=== PATIENT | male | born 2000 | race Caucasian/White ===

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

== ENCOUNTER 2021-03-24 21:48 | Emergency (ER) | payer MEDICAID, SELFPAY ==
[2021-03-24 21:48] VITALS: BP 134/93; PULSE 95; RESP 16; TEMP 35.5; O2SAT 99; BMI 25.5
--- NOTE | 2021-03-24 22:07 | CT_ITS ---
HISTORY: headaches, dizziness, intermittent syncope -- family H/O aneurysms EXAMINATION: CTA Head WO/W Contrast Injection TECHNIQUE: Multiple axial images were obtained of the head with and without intravenous contrast. CT angiogram protocol utilized with 2-D and 3-D reconstructions. A radiation dose optimization technique was used for this scan. IV Contrast dosage and agent: None. COMPARISON: None FINDINGS: BRAIN PARENCHYMA: No intra- or extra-axial hemorrhage. No evidence of acute infarct. No intracranial mass or mass effect. There is preservation of the palomo/white matter interface. Posterior fossa structures are unremarkable. CSF SPACES: Appropriate for age. No hydrocephalus. Basal cisterns are patent. CALVARIUM, SKULL BASE, PARANASAL SINUSES AND MASTOID AIR CELLS: Intact calvarium. No acute disease within imaged paranasal sinuses. Mastoid air cellls are well pneumatized. ORBITS: Unremarkable as visualized. headaches -- family H/O aneurysms --Anterior circulation: ICAs: No significant stenosis at the intracranial/visualized segments. ACAs: No significant stenosis at the visualized segments. ACOM: Present. MCAs: No significant stenosis at the visualized segments. --Posterior circulation: PCOMs: Patent bilaterally. clinical rehabilitation specialist: No significant stenosis at the visualized segments. BASILAR ARTERY: No significant stenosis. VERTEBRAL ARTERIES: No significant stenosis at the intradural/visualized segments. No evidence of intracranial aneurysm or vascular malformation. CT/CTA Head W/WO Contrast IMPRESSION: Negative CTA head with and without contrast. Individualized dose optimization techniques were used for this CT. at 2311 Reported and signed by: Abdiaziz Sen MD Electronically Signed: Abdiaziz Sen MD at 23:10 EST Tel , Service support ,
--- NOTE | 2021-03-24 22:09 | EKG12_ITS ---
Test Reason : DIZZINESS Blood Pressure : / mmHG Vent. Rate : 073 BPM Atrial Rate : 073 BPM P-R Int : 136 ms QRS Dur : 090 ms QT Int : 382 ms P-R-T Axes : 047 043 018 degrees QTc Int : 420 ms Normal sinus rhythm Normal ECG Confirmed by JAKE ABREU, KIMBERLY ([id number]), associate editor JORDY SHERIDAN ([id number]) on 03/26/2021 1:24:33 PM Referred By: RYAN Confirmed By:KIMBERLY JOSEPH MD
--- NOTE | 2021-03-24 22:09 | EDS_ITS ---
HPI History of Present Illness Chief Complaint: Dizziness Informant: patient and parent Onset/Context/Timing Onset: Weeks Context: Gradual Onset Current Severity: Moderate Maximum Severity: Moderate Narrative Narrative: Patient presents with episodes of dizziness and migraine with intermittent syncope. He states is been having episodes of dizziness and near syncope/syncope since mid February. He was seen by his PCP and is scheduled to undergo an MRI of his brain. Over the past 1 month he is also had migraines associated with this. He states if he takes Excedrin early enough that will seem to destiny the headache. He states he is currently getting the dizzy migraine episodes daily. He will have a near syncopal episode about twice a week. He denies having palpitations. There is a family history of aneurysms. [facility] Medical History Anemia Anxiety History of ADHD Ingrowing toenail of left foot Non-smoker Wears glasses Home Medications NK 11/30/20 [History Last Taken Unknown] Allergy/AdvReac Type Severity Reaction Status Date / Time amoxicillin [From Augmentin] Allergy Hives Verified 03/24/21 22:21 clavulanic acid Allergy Hives Verified 03/24/21 22:21 [From Augmentin] clindamycin AdvReac Vomiting Verified 03/24/21 22:21 Surgical History Hx of myringotomy Social History Smoking Status: Current some day smoker tobacco type: cigarettes ROS ROS ED Constitutional Constitutional ED: Denies chills or fever(s) Eyes Eyes: Reports blurry vision ENT ENT ED: Denies sore throat Cardiovascular Cardiovascular: Denies chest pain, palpitations or racing heartbeat Respiratory/Chest Respiratory/Chest: Denies cough or dyspnea Gastrointestinal Gastrointestinal: Denies abdominal pain, diarrhea, nausea or vomiting Musculoskeletal Musculoskeletal: Denies back pain Integumentary Denies rash Neurologic Neurologic: Reports headache(s); Denies weakness Psychiatric Psychiatric: Denies anxiety or depression Allergic/Immunologic Allergic/Immunologic ED: Denies urticaria EXAM Physical Exam Const Vital Signs: 03/24/21 21:48 Temperature 96 F L Temperature Source Temporal Pulse Rate 95 Respiratory Rate 16 Blood Pressure 134/93 H Blood Pressure Mean 106 Pulse Ox 99 Oxygen Delivery Method Room Air Positive well nourished and well developed General Appearance ED: well developed Eyes PERRL and EOMs intact bilaterally Neck supple Chest Wall inspection of chest normal and palpation of chest normal Resp normal respiratory effort and clear to auscultation bilaterally Cardio regular rate and regular rhythm GI normal to inspection, nondistended, normoactive bowel sounds and non-tender Palpation: soft Extremity normal to inspection Neuro oriented x3 and no sensory deficits noted Sensorium / Orientation: alert Motor Exam: strength 5/5 throughout Psych mental status grossly normal Skin no rashes or lesions noted MDM MDM MDM Narrative Medical decision making narrative: Patient placed on property assessment monitor and EKG obtained. Lab work and CTA head ordered. Patient was given Toradol, Reglan, Benadryl, IV fluids Lab Data Attestation: I reviewed the patient's lab results. Labs: Laboratory Results - last 24 hr 03/24/21 03/24/21 22:38 22:38 WBC 10.0 RBC 5.66 Hgb 16.8 H Hct 48.4 MCV 85.5 MCH 29.7 MCHC 34.7 RDW Std Deviation 37.6 RDW Coeff of [place] 12.1 Plt Count 249 MPV 11.3 Immature Gran % (Auto) 0.100 Neut % (Auto) 58.6 Lymph % (Auto) 29.6 [place] % (Auto) 6.1 Eos % (Auto) 5.3 H Baso % (Auto) 0.3 Absolute Neuts (auto) 5.9 Absolute Lymphs (auto) 2.96 Nucleated RBC % 0 Sodium 140 Potassium 3.6 Chloride 109 H Carbon Dioxide 27.0 Anion Gap 4 L BUN 11 Creatinine 0.94 Estim Creat Clear Calc 118.18 Est GFR (MDRD) Af Amer 132 Est GFR (MDRD) Non-Af 109 BUN/Creatinine Ratio 11.7 Glucose 113 H Calcium 8.8 Radiography Diagnostic Testing: Clinical Impression(s) from Imaging Studies Head CTA 03/24/21 22:07 IMPRESSION: Negative CTA head with and without contrast. Individualized dose optimization techniques were used for this CT. at 2311 Reported and signed by: Abdiaziz Sen MD Electronically Signed: Abdiaziz Sen MD at 23:10 EST Tel , Service support , EKG Initial EKG: Attestation: I personally reviewed and interpreted this EKG as follows: Interpretation: Sinus Rhythm (Sinus at 73 with no acute ischemia.) Treatment and Re-Evaluation Comments:: Lab work reviewed. Hemoglobin slightly concentrated at 16.8. Chemistry studies unremarkable. CTA head unremarkable with no evidence of aneurysms. Patient does report some improvement in his headache. Once IV fluids are completed he will be discharged home with family. He is to follow-up for outpatient MRI as scheduled. Return instructions provided. Discharge Plan Triage Chief Complaint: Dizziness ED Provider: Nida Smith Dx/Rx/DC Orders Clinical Impression: Migraine, Near syncope Instructions: ED Dizziness, Uncertain Cause, ED, Migraine (Classical) Prescriptions: No Action NK RF: 0 Primary Care Provider: Abdiaziz Lozano Referrals: Abdiaziz Lozano MD [Primary Care Provider] - 1-2 Weeks Disposition Disposition: Home, Self Care
[2021-03-24] MEDS: 0.9% Normal Saline 1,000 ML 1000 ML IV (22:32)
[2021-03-24] MEDS: Ketorolac 30 MG/ML Syringe IV (22:33)
[2021-03-24] MEDS: Metoclopramide 10 MG/2 ML Vial 5 MG IV (22:33)
[2021-03-24] MEDS: DiphenhydrAMINE 50 MG/ML Syringe 12.5 MG IV (22:33)
[2021-03-24 22:49] LABS: Absolute Lymphocyte Count 2.96 X10^3/uL (0.83-4.51); Absolute Neutrophil Count 5.9 X10^3/uL (2.0-7.7); Basophil# 0.03 X10^3/uL; Basophil% 0.3 % (0-1); Eosinophil# 0.53 X10^3/uL; Eosinophils% 5.3 % (0-5); Hematocrit 48.4 % (40-54); Hemoglobin 16.8 g/dL (13.0-16.5); Lymphocyte # 2.96 X10^3/ul (0.83-4.51); Lymphocyte % 29.6 % (19-41); Mean Corp Hgb Conc 34.7 g/dL (32-36); Mean Corpuscular Hgb 29.7 pg (27.0-32.0); Mean Corpuscular Volume 85.5 fL (80-94); Mean Platelet Vol. 11.3 fl (6.2-12.0); Monocyte# 0.61 X10^3/uL; Monocyte% 6.1 % (0-10); NRBC Flagged by Analyzer 0 % (0-5); Neutrophil # 5.87 X10^3/uL (2.7-7.7); Neutrophil % 58.6 % (47-70); Platelet Count 249 K/mm3 (150-450); RBC Distribution Width CV 12.1 % (11.6-14.6); RBC Distribution Width SD 37.6 fl (35.1-43.9); Red Blood Count 5.66 M/mm3 (4.6-6.2)
[2021-03-24 22:55] LABS: Anion Gap 4 (5-15); BUN 11 mg/dL (7-18); BUN/Creat Ratio 11.7 RATIO (10-20); Calcium,Total 8.8 mg/dL (8.5-10.1); Chloride 109 mmol/L (98-107); Creatinine, Serum 0.94 mg/dL (0.70-1.30); EST Glomerular Filtration Rate 109 mL/min (>60); Est Glom Filt Rate - Afr Amer 132 mL/min (>60); Estimated Creatinine Clearance 118.18 ml/min; Glucose 113 mg/dL (74-106); Potassium 3.6 mmol/L (3.5-5.1); Sodium Level 140 mmol/L (136-145)
[2021-03-24 23:31] VITALS: BP 111/71; PULSE 74; RESP 61; O2SAT 98
== END 2021-03-24 23:35 | disposition home or self-care (01) ==
PROVIDERS: Emergency Provider Emergency Medicine; PCP Family Medicine
DX: G43.909 Migraine, unspecified, not intractable, without status migrainosus (principal); R55 Syncope and collapse; F17.210 Nicotine dependence, cigarettes, uncomplicated
CPT/HCPCS: 70496; 80048; 85025; 93005; 96361; 96374; 96375; 99284; J7030; Q9967; A4216

== ENCOUNTER 2021-07-31 15:52 | Outpatient (CLI) | payer MEDICAID, SELFPAY ==
[2021-07-31 17:35] LABS: Absolute Lymphocyte Count 2.29 X10^3/uL (0.83-4.51); Absolute Neutrophil Count 3.3 X10^3/uL (2.0-7.7); Basophil# 0.05 X10^3/uL; Basophil% 0.8 % (0-1); Eosinophil# 0.32 X10^3/uL; Eosinophils% 4.8 % (0-5); Hematocrit 50.4 % (40-54); Hemoglobin 17.5 g/dL (13.0-16.5); Lymphocyte # 2.29 X10^3/ul (0.83-4.51); Lymphocyte % 34.4 % (19-41); Mean Corp Hgb Conc 34.7 g/dL (32-36); Mean Corpuscular Hgb 29.6 pg (27.0-32.0); Mean Corpuscular Volume 85.1 fL (80-94); Mean Platelet Vol. 11.2 fl (6.2-12.0); Monocyte# 0.64 X10^3/uL; Monocyte% 9.6 % (0-10); NRBC Flagged by Analyzer 0 % (0-5); Neutrophil # 3.34 X10^3/uL (2.7-7.7); Neutrophil % 50.1 % (47-70); Platelet Count 263 K/mm3 (150-450); RBC Distribution Width CV 12.3 % (11.6-14.6); Red Blood Count 5.92 M/mm3 (4.6-6.2); White Blood Count 6.7 K/mm3 (4.4-11.0)
[2021-07-31 17:57] LABS: AST(SGOT) 27 U/L (15-37); Alanine Aminotransfer ALT/SGPT 41 U/L (16-61); Albumin, Serum 4.3 g/dL (3.2-5.0); Alkaline Phosphatase 96 U/L (45-117); Anion Gap 6 (5-15); BUN 10 mg/dL (7-18); BUN/Creat Ratio 8.9 RATIO (10-20); Chloride 105 mmol/L (98-107); Creatinine, Serum 1.12 mg/dL (0.70-1.30); EST Glomerular Filtration Rate 89 mL/min (>60); Est Glom Filt Rate - Afr Amer 107 mL/min (>60); Globulin 4.1 g/dL (2.2-4.2); Glucose 94 mg/dL (74-106); Potassium 3.8 mmol/L (3.5-5.1); Protein, Total 8.4 g/dL (6.4-8.2); Sodium Level 138 mmol/L (136-145); T4 Free Direct 1.26 ng/dL (0.76-1.46); Thyroid Stim Hormone (TSH) 2.13 uIU/mL (0.358-3.74)
[2021-08-01 11:43] LABS: Ferritin 283 ng/mL (26-388); Iron 98 ug/dL (65-175); Iron Binding Capacity,Total 313 ug/dL (250-450); PERCENT IRON SATURATION 31.3 % (15.0-55.0)
[2021-08-03 16:09] LABS: Thyroid Stim Immunoglob <0.10 IU/L (0.00-0.55); Transferrin 241 mg/dL (177-329)
[2021-08-03 22:23] LABS: Anti-Thyroglobulin AB < 1.0 IU/mL (0.0-0.9); Thyroglobulin, Serum Qt. 2.1 ng/mL (1.4-29.2); Thyroid Peroxidase AB 10 IU/mL (0-34)
== END 2021-07-31 23:59 | disposition home or self-care (01) ==
LOC: MFPLAB 15:57
PROVIDERS: PCP Family Medicine; Referring Provider Family Medicine; Visit Provider Family Medicine
DX: D75.1 Secondary polycythemia (principal); E01.0 Iodine-deficiency related diffuse (endemic) goiter
CPT/HCPCS: 36415; 80053; 82728; 83540; 83550; 84432; 84439; 84443; 84445; 84466; 85025; 86376; 86800

== ENCOUNTER 2021-08-02 16:01 | Outpatient (CLI) | payer MEDICAID, SELFPAY ==
--- NOTE | 2021-08-02 16:06 | EKG12_ITS ---
Test Reason : Blood Pressure : / mmHG Vent. Rate : 082 BPM Atrial Rate : 082 BPM P-R Int : 138 ms QRS Dur : 086 ms QT Int : 360 ms P-R-T Axes : 060 061 024 degrees QTc Int : 420 ms Normal sinus rhythm Normal ECG Confirmed by MIN ABREU, JOHN ([id number]), business editor SANTOSH WILKS ([id number]) on 08/06/2021 11:45:11 AM Referred By: Johnson Richards Confirmed By:JOHN COPELAND MD
== END 2021-08-02 23:59 | disposition home or self-care (01) ==
LOC: PSN 16:04
PROVIDERS: PCP Family Medicine; Referring Provider Family Medicine; Visit Provider Family Medicine
DX: E01.0 Iodine-deficiency related diffuse (endemic) goiter (principal)
CPT/HCPCS: 93005

== ENCOUNTER 2021-08-06 12:25 | Outpatient (CLI) | payer MEDICAID, SELFPAY ==
--- NOTE | 2021-08-06 12:27 | US_ITS ---
STUDY: THYROID ULTRASOUND REASON FOR EXAM: Male, 21 years old. Palpably enlarged thyroid TECHNIQUE: Ultrasound evaluation of the thyroid was performed with real-time and static palomo-scale imaging. COMPARISON: None. FINDINGS: RIGHT LOBE: The right lobe of the thyroid gland measures 5.1 x 1.9 x 1.4 cm. There is a homogeneous echotexture. There is a 2.1 x 1.0 x 1.1 cm isoechoic solid nodule. LEFT LOBE: The left lobe of the thyroid gland measures 4.9 x 1.8 x 1.4 cm. There is a homogeneous echotexture. There is a simple 0.4 cm cyst in the left lobe. ISTHMUS: The isthmus measures . The regional lymph nodes are normal. US/Thyroid IMPRESSION: Borderline enlarged thyroid with a solid isoechoic 2.1 cm nodule in the right lobe. This nodule is solid or almost completely solid, isoechoic, [id number], smoothly marginated and contains no echogenic foci. This nodule is mildly suspicious. Recommend follow-up thyroid ultrasounds at 1, 3 and 5 years. Simple cyst in the left lobe needs no specific follow-up Electronically Signed: Chava Bang MD at 16:52 EDT ,
== END 2021-08-06 23:59 | disposition home or self-care (01) ==
LOC: US 12:26
PROVIDERS: PCP Family Medicine; Referring Provider Family Medicine; Visit Provider Family Medicine
DX: R42 Dizziness and giddiness (principal); E01.0 Iodine-deficiency related diffuse (endemic) goiter
CPT/HCPCS: 76536

== ENCOUNTER → 2021-09-04 | Outpatient (CLI) | payer MEDICAID, SELFPAY ==
--- NOTE | 2021-09-04 | FLU_PTH ---
PATIENT: BRENTON FOSTER LOC: [facility] U#:[id number] AGE/SX: 21/M ROOM: RE09/04/[address]: Dr. Patricio Hoover MD : 2000 BED: DIS: 09/04/2021 SPEC #: [id number] RECD: 09/04/21 13:28 STATUS: CHAVA CHUCK #: [id number] THEODORA: 09/04/21 00:[address]: Patricio Hoover DEPT: CYTOLOGY RECD BY: Boyd Gastelum ENTERED: 09/04/21 13:29 SP TYPE: Fluid OTHR DR: Dr. Johnson Richards MD Tissues: A - Thyroid gland, NOS B - Thyroid gland, NOS Procedures: Special Stain Group II Surgery Specimen Level IV Cytospin Fluid HEADER OPERATION: Fine needle aspiration, right thyroid PRE-OP DIAGNOSIS: Multinodular Goiter TISSUE SUBMITTED: A ? FNA, right thyroid fluid, B ? FNA, right thyroid smears x10 DIAGNOSIS CYTOLOGY A. Right thyroid nodule, fine needle aspiration (cytospin and cell block): Negative for malignant cells. See comment. B. Right thyroid nodule, fine needle aspiration (smears): Consistent with benign follicular nodule ([place] category II). See comment. JERICA:esther 09/05/2021 COMMENT A. Follicular cells are not seen. B. The specimen is paucicellular, however, meets the minimal criteria for adequacy. Correlation with clinical, radiologic findings and appropriate follow up are necessary. CYTOLOGY STUDY Slides are reviewed. CYTOLOGY GROSS A - Received is 30 ml of light barber cloudy fluid labeled with the patient's name and and designated per the requisition as right thyroid. Submitted for cytology preparation including cell block. B - Received are 10 smears labeled with the patient's name and designated per the requisition as right thyroid. Submitted for staining. / esther 09/04/2021 TC:5 CPT: 00418 x2, 55931
== END | disposition home or self-care (01) ==
LOC: LABSPEC 12:41
PROVIDERS: PCP Family Medicine; Visit Provider Surgery
DX: E04.2 Nontoxic multinodular goiter (principal)
CPT/HCPCS: 88108; 88305; 88313

== ENCOUNTER → 2021-10-11 | Outpatient (CLI) | payer MEDICAID, SELFPAY ==
--- NOTE | 2021-10-11 11:17 | US_ITS ---
STUDY: THYROID ULTRASOUND REASON FOR EXAM: Male, 21 years old. GOITER TECHNIQUE: Ultrasound evaluation of the thyroid was performed with real-time and static palomo-scale imaging. COMPARISON: 4.09.22. FINDINGS: RIGHT LOBE: The right lobe of the thyroid gland measures 5.5 x 1.9 cm. There is a homogeneous echotexture. There are no demonstrated solid, cystic or complex lesions. LEFT LOBE: The left lobe of the thyroid gland measures 4.9 x 1.5 cm. There is a homogeneous echotexture. There is a nodule. This is 4 x 3mm. It has the appearance of a colloid cyst. ISTHMUS: The isthmus measures 4 mm. US/Thyroid IMPRESSION: There are left nodules. This nodule is mixed cystic and solid, hyperechoic or isoechoic, [id number]-[id number], smoothly marginated and contains microcalcifications. TI-RADS points: 3. TI-RADS category: TR3. This nodule is mildly suspicious but no FNA or follow-up is necessary given the small size of this nodule. Right thyroid nodule is no longer seen. Electronically Signed: Noel Lawrence MD at 14:21 EDT ,
== END | disposition home or self-care (01) ==
LOC: CT 11:15
PROVIDERS: PCP Family Medicine; Referring Provider Surgery; Visit Provider Surgery
DX: Z53.9 Procedure and treatment not carried out, unspecified reason (principal)
CPT/HCPCS: 76536

== ENCOUNTER → 2021-10-24 | Outpatient (CLI) | payer MEDICAID, SELFPAY ==
--- NOTE | 2021-10-24 08:22 | ECHOD_ITS ---
Reason For Study: SYNCOPE Procedure This was a 2D Doppler, Color Flow transthoracic echocardiogram. Exam performed in department. Left Ventricle Normal LV size. Left ventricular systolic function is normal. The estimated ejection fraction is 60 %. No regional wall motion abnormalities noted. Right Ventricle Normal RV size. Normal systolic function. Atria Normal left atrium. Normal right atrium. Bubble contrast study negative for right to left interatrial shunt. Mitral Valve Normal mitral valve. Tricuspid Valve Normal tricuspid valve. Aortic Valve Normal aortic valve. Trisinus/trileaflet aortic valve. Pulmonic Valve Normal pulmonic valve. Great Vessels Normal aortic root. The pulmonary artery is normal size. Normal inferior vena cava. Pericardium/Pleural No pericardial effusion. Medication 22 gauge I.V. with prn adaptor inserted into right arm. Performed a rapid injection of agitated mix of 9 cc saline and 1cc air to assess for atrial septal defect. MMode/2D Measurements & Calculations LVIDd: 4.3 cm IVSd: 0.84 cm LAV(MOD-sp2): 34.1 ml LVIDs: 2.5 cm LVPWd: 0.90 cm RVDd: 2.9 cm FS: 40.7 % LVAd ap4: 19.0 cm2 LVAd ap2: 27.4 cm2 SV(MOD-sp4): 23.9 ml LVLd ap4: 6.5 cm LVLd ap2: 8.2 cm EDV(MOD-sp4): 47.8 ml EDV(MOD-sp2): 78.4 ml EDV(sp4-el): 49.1 ml EDV(sp2-el): 77.6 ml LVAs ap4: 13.4 cm2 LVAs ap2: 14.2 cm2 LVLs ap4: 6.6 cm LVLs ap2: 6.2 cm ESV(MOD-sp4): 23.9 ml ESV(MOD-sp2): 28.4 ml ESV(sp4-el): 23.0 ml ESV(sp2-el): 27.6 ml EF(MOD-sp4): 50.0 % EF(MOD-sp2): 63.8 % EF(sp4-el): 53.1 % SV(MOD-sp2): 50.0 ml SV(sp4-el): 26.1 ml LA A4 area: 11.8 cm2 RA A4 area: 13.3 cm2 Doppler Measurements & Calculations MV E max farhan: 74.4 cm/sec Lat Peak E' Farhan: 17.6 cm/sec Med Peak E' Farhan: 16.4 cm/sec MV A max farhan: 52.6 cm/sec E/E' lat: 4.2 E/E' med: 4.5 MV E/A: 1.4 Ao V2 max: 102.1 cm/sec LV V1 max: 87.9 cm/sec PA V2 max: 80.9 cm/sec Ao max P.2 mmHg LV V1 max P.1 mmHg TR max farhan: 203.6 cm/sec TR max P.6 mmHg ECHO/Echo Complete Interpretation Summary Normal LV size. Left ventricular systolic function is normal. Bubble contrast study negative for right to left interatrial shunt. The estimated ejection fraction is 60 %. No regional wall motion abnormalities noted. Structurally normal valves. Ordering Physician: Armando Matias Referring Physician: Armando Matias Performed By: Argentina Zafar RCS
[2021-10-24 08:31] LABS: Hematocrit 46.2 % (40-54); Hemoglobin 15.7 g/dL (13.0-16.5); Mean Corpuscular Hgb 28.7 pg (27.0-32.0); Mean Corpuscular Volume 84.5 fL (80-94); Mean Platelet Vol. 10.8 fl (6.2-12.0); Platelet Count 286 K/mm3 (150-450); RBC Distribution Width CV 11.9 % (11.6-14.6); RBC Distribution Width SD 36.2 fl (35.1-43.9); Red Blood Count 5.47 M/mm3 (4.6-6.2); White Blood Count 10.9 K/mm3 (4.4-11.0)
[2021-10-24 08:54] LABS: Anion Gap 5 (5-15); BUN 12 mg/dL (7-18); BUN/Creat Ratio 11.8 RATIO (10-20); Calcium,Total 9.3 mg/dL (8.5-10.1); Chloride 105 mmol/L (98-107); Creatinine, Serum 1.02 mg/dL (0.70-1.30); EST Glomerular Filtration Rate 99 mL/min (>60); Est Glom Filt Rate - Afr Amer 119 mL/min (>60); Glucose 102 mg/dL (74-106); Potassium 3.7 mmol/L (3.5-5.1); Sodium Level 140 mmol/L (136-145)
--- NOTE | 2021-10-24 18:44 | PCM.TILTTABL ---
Physician Tilt Table Report Patient's Physicians Primary Care Physician: Johnson Richards Indications/Diagnosis: Recurrent syncope. Procedure Comments: The patient was brought to the noninvasive lab in the postabsorptive nonsedated state. Informed consent was obtained. Initial EKG demonstrated sinus rhythm with a rate of 66 bpm and a blood pressure 121/76 mmHg. The patient was then placed in the 70 degree upright tilt position for total duration of approximately 20 minutes. Patient maintained normal heart rate and blood pressure throughout. No symptomatology was noted. The patient was then placed back in the recumbent position and then given 0.4 mg of sublingual nitroglycerin. Continuous EKG monitoring was performed. At approximately 3 minutes after patient was put back in the 70 degree upright tilt position patient dropped his heart rate to 52 became pale and clammy arms cool and no recordable blood pressure. Patient was subsequently aroused by putting him back in the recumbent position. Final blood pressure was 116/68 with a heart rate of 79 bpm. Summary: Abnormal tilt table test positive for vasodepressor syncope.
== END | disposition home or self-care (01) ==
PROVIDERS: PCP Family Medicine; Referring Provider Internal Medicine Cardiovascular Disease; Visit Provider Internal Medicine Cardiovascular Disease
DX: E04.2 Nontoxic multinodular goiter (principal); F90.9 Attention-deficit hyperactivity disorder, unspecified type; R55 Syncope and collapse; G47.10 Hypersomnia, unspecified
CPT/HCPCS: 36415; 80048; 85027; 93306; 93660; J7040; A4216

== ENCOUNTER → 2021-10-25 | Outpatient (CLI) | payer MEDICAID, SELFPAY | END | disposition home or self-care (01) | LOC: SL 22:44 | PROVIDERS: PCP Family Medicine; Referring Provider Nurse Practitioner Acute Care; Visit Provider Nurse Practitioner Acute Care | DX: G47.19 Other hypersomnia (principal) | CPT/HCPCS: 95810 ==

== ENCOUNTER → 2021-11-05 | Outpatient (CLI) | payer MEDICAID, SELFPAY ==
--- NOTE | 2021-11-05 10:08 | RAD_ITS ---
STUDY: X-RAY CHEST REASON FOR EXAM: Male, 21 years old. Atypical chest pain, fever TECHNIQUE: PA and lateral views of the chest. COMPARISON: None. FINDINGS: Lungs are expanded, subtle opacification in the left chest perihilar region suggests atelectasis or early infiltrate. No demonstrated effusion. There is no demonstrated pleural abnormality. Normal size heart. Normal mediastinum and anthony. Normal visualized pulmonary arteries. Normal visualized aortic arch and descending thoracic aorta. Normal visualized thoracic spine. Normal visualized ribs, clavicles, and shoulders. There is no demonstrated abnormality of the visualized soft tissue structures of the upper abdomen. RAD/Chest PA and Lateral IMPRESSION: Lingular infiltrate or atelectasis. Follow-up recommended to ensure resolution Electronically Signed: Chava Bang MD at 11:11 EDT ,
== END | disposition home or self-care (01) ==
LOC: RAD 10:07
PROVIDERS: PCP Family Medicine; Referring Provider Physician Assistant Medical; Visit Provider Physician Assistant Medical
DX: R07.89 Other chest pain (principal); R50.9 Fever, unspecified; R55 Syncope and collapse
CPT/HCPCS: 71046

== ENCOUNTER 2021-11-18 16:29 | Emergency (ER) | payer MEDICAID, SELFPAY ==
[2021-11-18 16:31] VITALS: BP 127/85; PULSE 90; RESP 18; TEMP 36.6; O2SAT 98; BMI 24.0
--- NOTE | 2021-11-18 17:44 | EDS_ITS ---
HPI History of Present Illness Chief Complaint: Shortness of Breath Informant: patient and family Onset/Context/Timing Onset: Weeks Context: gradual Timing: Intermittent Current Severity: Mild Maximum Severity: Mild Worsened by: Nothing Relieved by: Nothing Associated Symptoms Chest Pain: Positive for None Narrative Narrative: 21-year-old male history of ADHD and vasovagal syncope. States he has had intermittent shortness of breath for a month. 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 He follows up with pulmonology due to a sleep study. Denies any history of DVT or PE. No chest pain or hemoptysis. No fever or chills. He had lab work done October 24 CBC and chemistry which were unremarkable. PE Risk Factors: Negative for Cancer, OCP + Smoking + > 35, Prior DVT or PE, Recent immobilization, Recent surgery or Recent travel Prior similar symptoms: Yes Recent Illness/Hospitalization: No PFSH PFSH Medical History ADHD (attention deficit hyperactivity disorder) Anemia Anxiety History of ADHD Ingrowing toenail of left foot Multinodular goiter Non-smoker Wears glasses Home Medications NK 10/14/21 [History Last Taken Unknown] Allergy/AdvReac Type Severity Reaction Status Date / Time amoxicillin [From Augmentin] Allergy Hives Verified 11/18/21 16:31 clavulanic acid Allergy Hives Verified 11/18/21 16:31 [From Augmentin] clindamycin AdvReac Vomiting Verified 11/18/21 16:31 Family History Mother Mixed hyperlipidemia Father Heart disease Hypertension Grandfather Heart disease Surgical History Hx of myringotomy Status post fine needle aspiration (~09/03/21) Social History Smoking Status: Current some day smoker tobacco type: cigarettes and e-cigaret binta [employer] Cigarette Use: with nicotine alcohol intake: never substance use type: does not use ROS ROS ED ROS Narrative Subjective shortness of breath. Review of Systems ROS Unobtainable: Denies due to encephalopathy Constitutional Constitutional ED: Denies chills Eyes Eyes: Denies blurry vision ENT ENT ED: Denies ear pain Cardiovascular Cardiovascular: Denies chest pain Respiratory/Chest Respiratory/Chest: Reports dyspnea; Denies cough Gastrointestinal Gastrointestinal: Denies abdominal pain Genitourinary Genitourinary ED: Denies dysuria or hematuria Musculoskeletal Musculoskeletal: Denies arthralgias Integumentary Denies abscess Neurologic Neurologic: Denies headache(s) Psychiatric Psychiatric: Reports anxiety Endocrine Endocrinology: Denies cold intolerance Hematologic/Lymphatic Hematologic/Lymphatic: Denies easy bleeding Allergic/Immunologic Allergic/Immunologic ED: Denies mouth swelling EXAM Physical Exam Narrative Exam Narrative: Very well-appearing 21-year-old vital signs stable afebrile. Pulse ox 90% on room air no signs hypoxia when I am in the room. Afebrile. His heart rate and respiratory rate and blood pressure in the room are completely normal. He is in no distress. Family is at bedside. H EENT exam normal. Neck nontender no JVD. No lymphadenopathy. Lungs clear to auscultation bilaterally. Heart regular rate and rhythm rate about 80 no murmur. Abdomen soft nontender. Moving all 4 extremities. Calves are nontender without edema or cords. Neurologically patient is awake and alert with no focal motor deficits. Const Vital Signs: 11/18/21 16:31 11/18/21 16:45 Temperature 97.8 F Temperature Source Temporal Pulse Rate 90 Respiratory Rate 18 Respiratory Effort Short of Breath Respiratory Depth Shallow Respiratory Pattern Normal Blood Pressure 127/85 H Blood Pressure Mean 99 Pulse Ox 98 Oxygen Delivery Method Room Air Room Air Positive well nourished and well developed; Negative for obese, cachectic, contractures or unkempt General Appearance ED: well developed; Negative for unkempt, cachectic, contractures or pallor Nutritional Appearance: Negative for cachectic or obese HEENT Reports moist mucous membranes atraumatic; Negative for trauma or tenderness Eyes PERRL and EOMs intact bilaterally General Eye ED: Negative for pale conjunctiva or scleral icterus Neck no lymphadenopathy, supple, no meningeal signs and no JVD General: Negative for tenderness Lymph Lymphatic: Negative for other Chest Wall Chest: Negative for other Resp normal respiratory effort and clear to auscultation bilaterally Effort and Inspection: Negative for pain with movement Auscultation: Negative for rales, rhonchi, wheezes or diminished lung sounds Cardio regular rate, regular rhythm, S1 normal heart sound, S2 normal heart sound and no murmurs Rate: Negative for bradycardia Rhythm: Negative for abnormal rhythm GI non-tender, non-distended and no masses Inspection: Negative for other Auscultation: normoactive bowel sounds Palpation: soft; Negative for tender, guarding, hepatomegaly, splenomegaly, mass or rebound tenderness present Back/Spine no CVA tenderness and normal to inspection General Back: Negative for CVA tenderness or tenderness Extremity normal to inspection General Extremety ED: Negative for edema or tenderness General Extremity: Negative for edema Neuro oriented x3, CN's II-XII intact bilaterally and no sensory deficits noted Sensorium / Orientation: alert Speech: speech normal Motor Exam: strength 5/5 throughout Psych mental status grossly normal Appearance: Negative for unkempt Attitude: No agitated Mood & Affect: Negative for depressed Thought Process: normal thought process Skin no wounds General Skin Exam: Negative for jaundice or pallor Lesions: no lesions Rashes: no rashes MDM MDM MDM Narrative Medical decision making narrative: 21-year-old subjective shortness of breath. Had normal labs 3 weeks ago. Said a recent chest x-ray showing atelectasis. His heart and lung have a normal exam. He is got a normal sinus rhythm on the monitor. I explained he and his family I do not think he needs any work-up at this time. They are comfortable with that. He will follow-up with his physicians. Lab Data Lab results narrative: I reviewed his CBC and chemistry from October 24 they were normal. I reviewed his chest x-ray from November 05 and it showed atelectasis otherwise was unremarkable. 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 This may be secondary to anxiety. Your labs from October 24 and your chest x-ray from the were basically unremarkable. Your exam today is normal. Disposition Disposition: Home, Self Care
== END 2021-11-18 17:57 | disposition home or self-care (01) ==
PROVIDERS: Emergency Provider Emergency Medicine; PCP Family Medicine; Visit Provider Emergency Medicine
DX: R06.00 Dyspnea, unspecified (principal); F17.210 Nicotine dependence, cigarettes, uncomplicated
CPT/HCPCS: 99282

== ENCOUNTER → 2021-12-03 | Outpatient (CLI) | payer MEDICAID, SELFPAY ==
--- NOTE | 2021-12-04 05:35 | PFTCOMP ---
COMPLETE PULMONARY FUNCTION TEST INTERPRETATION Brief HPI: Patient is a 21-year-old male, currently under the care of myself, who presents to [facility] for complete pulmonary function tests secondary to diagnosis of dyspnea. Respiratory therapist reports good effort and reproducible results. Interpretation: Forced expiration spirometry shows no large airways obstructive ventilatory defect with an FEV1 of 77% predicted. There is no significant bronchodilator response by strict ATS criteria. Spirograms are of good quality and plateau normally. The respiratory flow volume loop shows a normal pattern. Lung volumes by body plethysmography show decreased total lung capacity at 5.25 L, 77% predicted. All other lung volumes are reduced symmetrically. Diffusion capacity by carbon monoxide is decreased at 67% predicted. The airway resistance is normal. No previous pulmonary function tests were available for review. Impression: Mild restrictive ventilatory defect with a symmetric reduction diffusion capacity in a pattern consistent with possible interstitial lung disease
== END | disposition home or self-care (01) ==
LOC: PSN 10:26
PROVIDERS: PCP Family Medicine; Referring Provider Internal Medicine Critical Care Medicine; Visit Provider Internal Medicine Critical Care Medicine
DX: R06.00 Dyspnea, unspecified (principal)
CPT/HCPCS: 94060; 94726; 94729

== ENCOUNTER → 2022-05-09 | Outpatient (CLI) | payer MEDICAID, SELFPAY ==
--- NOTE | 2022-05-09 18:39 | CT_ITS ---
STUDY: CT CHEST WITHOUT CONTRAST REASON FOR EXAM: Male, 21 years old. Restrictive PFT RADIATION DOSAGE (If Supplied By Facility): CTDIvol = ( 10.11 ) mGy, DLP = ( 351.03 ) mGycm TECHNIQUE: Transaxial imaging was performed without the administration of intravenous contrast material. Individualized dose optimization techniques were used for this CT. COMPARISON: None November 05, 2021. FINDINGS: There are minor 1 to 2 mm noncalcified benign granulomata. Lung interstitium is normal without chronic disease.. Central airways are patent. Pleural surfaces are intact. There is subcarinal soft tissue, probably enlarged lymph nodes.. Cardiac chambers are normal in size and shape. Aorta and pulmonary artery are unremarkable. There is no calcified coronary plaque/coronary calcifications. Osseous structures are intact. Spine and ribs are normal. CT/Chest without Contrast IMPRESSION: 1. Normal lungs. 2. Probably mediastinal lymphadenopathy, suboptimally evaluated without contrast. Electronically Signed: Bautista Garcia MD at 12:26 [facility] ,
== END | disposition home or self-care (01) ==
PROVIDERS: PCP Family Medicine; Referring Provider Internal Medicine Critical Care Medicine; Visit Provider Internal Medicine Critical Care Medicine
DX: R94.2 Abnormal results of pulmonary function studies (principal)
CPT/HCPCS: 71250

== ENCOUNTER → 2022-09-19 | Outpatient (CLI) | payer MEDICAID, SELFPAY ==
--- NOTE | 2022-09-19 09:57 | PFT ---
INTRODUCTION: The patient is a 22-year-old male that presents for pulmonary function studies secondary to a diagnosis of abnormal PFT. Respiratory therapy reported good patient effort. Bronchodilators were used during testing. INTERPRETATION: Forced expiration spirometry demonstrates no evidence of a large airways obstructive ventilatory defect. There was no significant response to aerosolized bronchodilators. Spirograms are of good quality and plateau normally. The respiratory flow-volume loop is normal. Body plethysmography was performed and revealed a decreased TLC to 5.01 L, 74% of predicted, indicative of a mild restrictive ventilatory impairment. Diffusing capacity by single breath CO was within normal limits. IMPRESSION: Mild restrictive ventilatory impairment.
== END | disposition home or self-care (01) ==
LOC: PSN 06:54
PROVIDERS: PCP Family Medicine; Referring Provider Internal Medicine Critical Care Medicine; Visit Provider Internal Medicine Critical Care Medicine
DX: R94.2 Abnormal results of pulmonary function studies (principal)
CPT/HCPCS: 94060; 94726; 94729

== ENCOUNTER → 2024-08-10 | Outpatient (CLI) | payer SELFPAY ==
[2024-08-10 12:26] LABS: Absolute Lymphocyte Count 1.99 X10^3/uL (0.83-4.51); Absolute Neutrophil Count 5.5 X10^3/uL (2.0-7.7); Basophil# 0.02 X10^3/uL; Basophil% 0.2 % (0-1); Eosinophil# 0.32 X10^3/uL; Eosinophils% 3.7 % (0-5); Hematocrit 46.1 % (40-54); Hemoglobin 15.7 g/dL (13.0-16.5); Lymphocyte # 1.99 X10^3/ul (0.83-4.51); Lymphocyte % 23.1 % (19-41); Mean Corp Hgb Conc 34.1 g/dL (32-36); Mean Corpuscular Hgb 29.1 pg (27.0-32.0); Mean Corpuscular Volume 85.5 fL (80-94); Mean Platelet Vol. 11.7 fl (6.2-12.0); Monocyte# 0.79 X10^3/uL; Monocyte% 9.2 % (0-10); NRBC Flagged by Analyzer 0 % (0-5); Neutrophil # 5.47 X10^3/uL (2.7-7.7); Neutrophil % 63.6 % (47-70); Platelet Count 282 K/mm3 (150-450); RBC Distribution Width CV 12.8 % (11.6-14.6); RBC Distribution Width SD 39.7 fl (35.1-43.9); Red Blood Count 5.39 M/mm3 (4.6-6.2); White Blood Count 8.6 K/mm3 (4.4-11.0)
[2024-08-10 15:31] LABS: ALB/GLOB Ratio 1.4 RATIO (0.9-2.4); AST(SGOT) 32 U/L (<=37); Alanine Aminotransfer ALT/SGPT 57 U/L (<=46); Albumin, Serum 4.6 g/dL (3.5-5.0); Alkaline Phosphatase 68 U/L (40-129); Anion Gap 11 (5-15); BUN 15 mg/dL (4-19); BUN/Creat Ratio 17.5 RATIO (10-20); Calcium,Total 9.7 mg/dL (7.6-11.0); Carbon Dioxide 22.5 mmol/L (21.0-32.0); Chloride 105 mmol/L (98-108); Creatinine, Serum 0.84 mg/dL (0.70-1.20); EST Glomerular Filtration Rate 126 (>60); Globulin 3.4 g/dL (2.2-4.2); Glucose 90 mg/dL (70-99); Magnesium 2.2 mg/dL (1.5-2.2); Potassium 3.8 mmol/L (3.3-5.1); Protein, Total 7.9 g/dL (5.9-8.4); Sodium Level 139 mmol/L (133-145); Total Bilirubin 0.35 mg/dL (0.00-1.30)
[2024-08-12 09:08] LABS: Deamidated Gliadin IgA 4 units (0-19); Deamidated Gliadin IgG 3 units (0-19); Endomysial Antibody IgA Negative (Negative); Immunoglobulin A 210 mg/dL (90-386); t-Transglutaminase IgA <2 U/mL (0-3)
== END | disposition home or self-care (01) ==
LOC: MFPLAB 10:24
PROVIDERS: PCP Family Medicine; Referring Provider Family Medicine; Visit Provider Family Medicine
DX: R19.7 Diarrhea, unspecified (principal)
CPT/HCPCS: 36415; 80053; 82784; 83516; 83735; 85025; 86255

== ENCOUNTER → 2024-08-12 | Outpatient (CLI) | payer OTHER, SELFPAY ==
[2024-08-14 09:07] LABS: HEPATITIS B SURFACE AG Negative (Negative); Hep C Antibodies Non Reactive (Non Reactive); Hepatitis A IgM Antibody Negative (Negative); Hepatitis B Core AB IgM Negative (Negative)
== END | disposition home or self-care (01) ==
LOC: MFPLAB 16:53
PROVIDERS: PCP Family Medicine; Referring Provider Family Medicine; Visit Provider Family Medicine
DX: R94.5 Abnormal results of liver function studies (principal)
CPT/HCPCS: 36415; 80074

== ENCOUNTER → 2024-08-12 | Outpatient (CLI) | payer OTHER, SELFPAY ==
--- NOTE | 2024-08-12 15:31 | MRI_ITS ---
PROCEDURE: BRAIN W/WO CONTRAST 08/12/2024 REASON FOR EXAM: HEADACHES TECHNIQUE: TECHNIQUE: Multiplanar, multi-sequence MRI of brain was performed without and with IV contrast. CONTRAST: 15 cc IV Clariscan was administered. COMPARISON: None FINDINGS: FINDINGS: BRAIN/PARENCHYMA: No evidence of acute infarction or acute intracranial hemorrhage. There are subcortical and periventricular white matter FLAIR hyperintensities, likely related to chronic microvascular ischemic disease. No abnormal post-contrast enhancement. EXTRA-AXIAL SPACES: No abnormal extra-axial fluid collections. Patent basal cisterns and foramen magnum. MIDLINE SHIFT: None. VENTRICLES: No hydrocephalus. SCALP SOFT TISSUES & CALVARIUM: No significant abnormality. VISUALIZED SINUSES & MASTOIDS: No air-fluid levels in the paranasal sinuses. The mastoid air cells are clear. ARTERIAL FLOW VOIDS: Preserved major arterial flow voids indicating gross patency. MRI/Brain W/WO Contrast IMPRESSION: No acute intracranial abnormality; no acute infarct, intracranial hemorrhage or extra-axial collection. No suspicious intracranial mass, abnormal parenchymal or leptomeningeal enhance ment. [facility]
== END | disposition home or self-care (01) ==
LOC: MRI 15:29
PROVIDERS: PCP Family Medicine; Referring Provider Family Medicine; Visit Provider Family Medicine
DX: R51.9 Headache, unspecified (principal)
CPT/HCPCS: 70553; A9575

== ENCOUNTER → 2024-11-14 | Outpatient (CLI) | payer OTHER, SELFPAY ==
[2024-11-14 15:32] LABS: AST(SGOT) 33 U/L (<=37); Alanine Aminotransfer ALT/SGPT 40 U/L (<=46); Albumin, Serum 4.5 g/dL (3.5-5.0); Alkaline Phosphatase 65 U/L (40-129); Anion Gap 11 (5-15); BUN 19 mg/dL (4-19); BUN/Creat Ratio 18.3 RATIO (10-20); Calcium,Total 9.5 mg/dL (7.6-11.0); Carbon Dioxide 24.5 mmol/L (21.0-32.0); Chloride 103 mmol/L (98-108); Globulin 3.3 g/dL (2.2-4.2); Glucose 88 mg/dL (70-99); Potassium 4.1 mmol/L (3.3-5.1)
== END | disposition home or self-care (01) ==
LOC: MFPLAB 12:14
PROVIDERS: PCP Family Medicine; Referring Provider Family Medicine; Visit Provider Family Medicine
DX: R79.89 Other specified abnormal findings of blood chemistry (principal)
CPT/HCPCS: 36415; 80053

== ENCOUNTER 2024-12-28 14:43 | Emergency (ER) | payer OTHER, SELFPAY ==
[2024-12-28 14:45] VITALS: BP 130/72; PULSE 76; RESP 16; TEMP 36.8; O2SAT 100; BMI 24.8
--- NOTE | 2024-12-28 15:16 | EX.ED.DYSGE1 ---
HPI History of Present Illness Chief Complaint: Nausea/Vomiting Narrative Narrative: History of vasovagal events occurs monthly followed by his PCP. 5 AM this morning awake and felt one of his typical symptoms. [place] weak lightheaded dizzy with nausea. No vomiting or diarrhea. No urinary symptoms. No recent illness. States it really lingers 5 hours. Subsided. Denies black or bloody stools. Denies chest pains. Denies any prodromal dyspnea. Symptoms currently subsided. Patient denies any increasing stress. However he did state he missed work due to symptoms. Prior similar symptoms: Yes PFSH PFSH Medical History Multinodular goiter ADHD (attention deficit hyperactivity disorder) Ingrowing toenail of left foot Wears glasses History of ADHD Anxiety Anemia Non-smoker Home Medications ?Medication ?Instructions ?Recorded ?Last Taken ?Type topiramate 25 mg tablet 25 mg PO QHS 12/28/24 Unknown History Allergy/AdvReac Type Severity Reaction Status Date / Time amoxicillin (From Augmentin) Allergy Hives Verified 12/28/24 14:48 clavulanic acid (From Allergy Hives Verified 12/28/24 14:48 Augmentin) clindamycin AdvReac Vomiting Verified 12/28/24 14:48 Family History Mother Mixed hyperlipidemia Father Heart disease Hypertension Grandfather Heart disease Surgical History Status post fine needle aspiration (~09/03/21) Hx of myringotomy Social History Smoking Status: Current every day smoker tobacco type: e-cigarettes Electronic Cigarette Use: with nicotine alcohol intake: never substance use type: does not use ROS ROS ED Constitutional Constitutional ED: Denies chills, fever(s) or sweats ENT ENT ED: Denies sore throat Cardiovascular Cardiovascular: Reports other Details: Lightheaded ; Denies chest pain, leg edema, palpitations or racing heartbeat Respiratory/Chest Respiratory/Chest: Denies cough, dyspnea or dyspnea on exertion Gastrointestinal Gastrointestinal: Reports nausea; Denies abdominal pain, diarrhea or vomiting Genitourinary Genitourinary ED: Denies dysuria, hematuria or urinary frequency Musculoskeletal Musculoskeletal: Denies back pain, extremity pain or neck pain Integumentary Denies rash or wounds Neurologic Neurologic: Reports weakness; Denies headache(s) or paresthesias EXAM Physical Exam Const Vital Signs: 12/28/24 14:45 Temperature 98.3 F Temperature Source Oral Pulse Rate 76 Respiratory Rate 16 Blood Pressure 130/72 H Blood Pressure Mean 91 Pulse Ox 100 Oxygen Delivery Method Room Air Positive well nourished and well developed General Appearance ED: well developed and NAD HEENT Reports moist mucous membranes normocephalic and atraumatic Eyes General Eye ED: Yes normal appearance of both eyes; Negative for pale conjunctiva Neck full ROM Chest Wall Chest: Negative for tenderness Resp normal respiratory effort and normal air movement Effort and Inspection: symmetric chest movement; Negative for respiratory distress Cardio regular rate, regular rhythm and no murmurs Peripheral Pulses: pulses 2+ throughout GI normal to inspection, nondistended, normoactive bowel sounds and non-tender Palpation: Negative for guarding or rebound tenderness present Extremity normal to inspection General Extremety ED: Negative for edema or tenderness General Extremity: Negative for edema Neuro oriented x3, CN's II-XII intact bilaterally and no sensory deficits noted Neuro Narrative: No focal deficits. Sensorium / Orientation: awake and alert Skin no rashes or lesions noted and no wounds MDM MDM MDM Narrative Medical decision making narrative: Interventions / MDM: Differential diagnosis: Vasovagal episode, work note deprivation Diagnosis considered but do not suspect: N/A My EKG interpretation: N/A Imaging independently reviewed and interpreted by myself: N/A External documents reviewed: N/A Test considered but not ordered: EKG however patient declined. Lab work however no clinical pallor no vomiting or diarrhea concerns for any electrolyte abnormalities. ED course: Vital stable no focal deficits. He reports similar symptoms monthly. Further discussion with patient he states he missed work and needed a note. I offered EKG further evaluation however he declines. He will follow-up with his PCP. All questions were answered. Re-evaluation: stable Disposition discussed with patient/family/significant other: Patient Case discussed with consulting clinician: N/A This note was generated with [employer] dictation software. It may contain incorrect words, spelling, and punctuation that were not noted in checking the note before signing. Discharge Plan Triage Chief Complaint: Nausea/Vomiting ED Provider: Coleman Flor Dx/Rx/DC Orders Clinical Impression: Vasovagal episode, Weakness Instructions: ED Near-Fainting- Vagal Reaction Prescriptions: No Action topiramate 25 mg tablet 25 mg PO QHS Stand Alone Forms: ED Work / School Excuse Primary Care Provider: Josse Rogers Referrals: Josse Rogers MD [Primary Care Provider] - 1-2 Weeks Print Language: [place] Disposition Disposition: Home, Self Care
[2024-12-28 15:25] VITALS: BP 127/84; PULSE 83; RESP 19; TEMP 36.4; O2SAT 100
== END 2024-12-28 15:26 | disposition home or self-care (01) ==
LOC: ED 15:20
PROVIDERS: Emergency Provider Emergency Medicine; PCP Family Medicine; Visit Provider Emergency Medicine
DX: R11.2 Nausea with vomiting, unspecified (principal); R53.1 Weakness; R55 Syncope and collapse; F17.290 Nicotine dependence, other tobacco product, uncomplicated
CPT/HCPCS: 99282